=== PATIENT | female | born 1965 | race Caucasian/White ===

== ENCOUNTER → 2020-12-17 | Outpatient (CLI) | payer SELFPAY ==
--- NOTE | 2020-12-17 10:25 | KCIC ---
EXAM: Lumbar spine MRI without contrast. HISTORY: Lumbar radiculopathy. Right hip pain. TECHNIQUE: Multiplanar, multisequence magnetic resonance imaging of the lumbar spine was performed wi thout contrast. COMPARISON: None. FINDINGS: There is no significant listhesis. There is multilevel endplate remodeling, predominantly a t the lower thoracic levels on the lumbosacral junction. There is disc desiccation and disc space noemi rowing at L5-S1. There are few osseous hemangiomas. There is no suspicious osseous lesion. There is n o acute or subacute fracture. There is partial visualization of a fluid-filled structure internal foc i of T2 hyperintensity within the midline pelvis. This may be a loop of bowel. However, the possibili ty of an adnexal cystic lesion is not excluded. At L1-L2, there is no stenosis. At L2-L3, there is no stenosis. At L3-L4, there is no stenosis. At L4-L5, there is a left foraminal to extraforaminal disc protrusion and annular tear. There is mild bilateral facet arthropathy. There is mild left foraminal stenosis with abutment of the exiting left L4 nerve root. At L5-S1, there is a disc bulge and endplate remodeling. There is mild bilateral facet arthropathy. T here is mild bilateral foraminal stenosis. IMPRESSION: 1. L4-L5: Left foraminal to extra foraminal disc protrusion and annular tear and mild facet arthropat hy, resulting in mild left foraminal stenosis with abutment of the exiting left L4 nerve root. 2. L5-S1: Disc bulge and endplate remodeling and mild facet arthropathy, resulting in mild bilateral foraminal stenosis. 3. Fluid-filled structure within the midline pelvis, partially included on the [id number] and poss ibly due to a prominent loop of bowel. The possibility of an adnexal cystic lesion is not excluded. P elvic sonography can be performed if there is clinical concern. Electronically signed by: Christy Coughlin MD (12/17/2020 10:23 AM) [id number]
== END ==
LOC: KCIC MRI 08:08
PROVIDERS: ATTEND Physician Assistant Medical
DX: M47.817 Spondylosis without myelopathy or radiculopathy, lumbosacral region (principal); M51.27 Other intervertebral disc displacement, lumbosacral region; M48.07 Spinal stenosis, lumbosacral region
CPT/HCPCS: 72148

== ENCOUNTER → 2021-02-16 | Outpatient (CLI) | payer SELFPAY ==
--- NOTE | 2021-02-16 13:08 | KCIC ---
EXAM: Pelvic sonogram. HISTORY: Adnexal cyst or bowel loop on lumbar MRI. TECHNIQUE: Sonographic imaging of the pelvis was performed. COMPARISON: MRI dated 12/17/2020. FINDINGS: The uterus and ovaries are surgically absent. No pelvic cyst, mass or free fluid is seen. T here are prominent fluid-filled loops of peristalsing bowel within the midline pelvis. IMPRESSION: 1. Surgically absent uterus and ovaries. 2. Prominent fluid-filled loops of peristalsing bowel within the midline pelvis. 3. No suspicious sonographic finding. Electronically signed by: Christy Coughlin MD (02/16/2021 1:06 PM) [id number]
== END ==
LOC: KCIC US 12:36
PROVIDERS: ATTEND Obstetrics & Gynecology
DX: K56.2 Volvulus (principal); Z90.710 Acquired absence of both cervix and uterus; Z90.722 Acquired absence of ovaries, bilateral
CPT/HCPCS: 76856